=== PATIENT | male | born 1950 | race Caucasian/White ===

== ENCOUNTER 2024-07-09 15:39 | Inpatient (IN) | payer MEDICARE ==
[~2024-07-09] VITALS: Ht 167.6 cm; Wt 86.0 kg
[2024-07-09] MEDS ORDERED: CEFTRIAXONE 1 GM VIAL ONE (15:58)
[2024-07-09] MEDS ORDERED: SODIUM CHLORIDE 0.9% 1000ML 2,000 ML ONE (15:58)
[2024-07-09] MEDS ORDERED: ACETAMINOPHEN 1000 MG/100 ML 100 ML IV ONE (15:58)
[2024-07-09 16:12] LABS: BASOPHILS % 0.2 % (0.0-1.0); EOSINOPHILS # (AUTO) 0.1 (0.0-0.4); EOSINOPHILS % 0.6 % (0.0-6.0); HEMATOCRIT 43.5 % (38.2-49.6); LYMPHOCYTES # (AUTO) 0.7 (1.0-3.2); LYMPHOCYTES % 4.1 % (18.0-39.1); MEAN CORPUSCULAR HEMOGLOBIN 29.9 pg (28-32); MEAN CORPUSCULAR HGB CONC 32.2 g/dL (31-35); MEAN CORPUSCULAR VOLUME 92.8 fL (81-99); MONOCYTES # (AUTO) 1.6 (0.2-0.8); MONOCYTES % 8.8 % (4.4-11.3); NEUTROPHILS # (AUTO) 15.6 (2.1-6.9); NEUTROPHILS % 85.6 % (38.7-80.0); PLATELET COUNT 268 x10e3/uL (140-360); RED BLOOD COUNT 4.69 x10e6/uL (4.3-5.7); RED CELL DISTRIBUTION WIDTH 14.6 % (11.7-14.4); WHITE BLOOD COUNT 18.16 x10e3/uL (4.8-10.8)
[2024-07-09 16:14] LABS: CLARITY,URINE CLOUDY (CLEAR); COLOR,URINE YELLOW (YELLOW); LEUKOCYTE ESTERASE ,URINE SMALL (NEGATIVE); NITRITE,URINE POSITIVE (NEGATIVE); PH,URINE 5.5 (5 - 7); PROTEIN,URINE DIPSTICK >=300 (NEGATIVE)
[2024-07-09 16:15] LABS: BILIRUBIN,URINE NEGATIVE (NEGATIVE); GLUCOSE, URINE 500 (NEGATIVE); KETONES,URINE 1+ (NEGATIVE); URINE UROBILINOGEN 0.2 mg/dL (0.2 - 1)
[2024-07-09 16:17] LABS: BACTERIA,URINE MANY /HPF; EPITHELIAL CELLS,URINE RARE /LPF; INR 1.09; PROTHROMBIN TIME 14.7 seconds (11.9-14.5); WBC,URINE (MAN) >50 /HPF (0-5)
[2024-07-09 16:18] LABS: PARTIAL THROMBOPLASTIN TIME 30.1 seconds (23.8-35.5)
[2024-07-09 16:26] LABS: ALBUMIN 3.1 g/dL (3.5-5.0); ALBUMIN/GLOBULIN RATIO 0.6 (0.8-2.0); ANION GAP 17.3 mmol/L (8-16); CALCIUM 9.9 mg/dL (8.4-10.2); CREATININE, SERUM 1.69 mg/dL (0.72-1.25); POTASSIUM 4.3 mmol/L (3.5-5.1); TOTAL PROTEIN 8.2 g/dL (6.5-8.1)
[2024-07-09] MEDS ORDERED: IOPAMIDOL 370 MG/ML 100 ML INFUS..BTL INJ ONE (16:41)
[2024-07-09] MEDS: SODIUM CHLORIDE 0.9% 1000ML 1,000 ML IV ONE (17:06)
[2024-07-09] MEDS: ACETAMINOPHEN 1000 MG/100 ML IV STA (17:06)
[2024-07-09] MEDS: SODIUM CHLORIDE 0.9% 1000ML 1,000 ML IV SCH ×2 (17:07→19:37)
[2024-07-09] MEDS: SODIUM CHLORIDE 0.9% 500ML 500 ML IV ONE ×2 (17:58→19:47)
[2024-07-09] MEDS ORDERED: ONDANSETRON HCL INJ 2MG/ML 2ML 2 MG/ML VIAL IV PRN (18:45)
[2024-07-09] MEDS ORDERED: SODIUM CHLORIDE FLUSH 10 ML SYR INJ PRN (18:45)
[2024-07-09] MEDS: INSULIN REGULAR, HUMAN 100 UNIT/1 ML SQ ONE (19:38)
[2024-07-09 20:09] VITALS: TEMP 99.5
[2024-07-09] MEDS: IBUPROFEN 600 MG TAB PO PRN (20:13)
[2024-07-09] MEDS: Vancomycin IV 1 GM in SODIUM CHLORIDE 0.9% 250ML 250 ML IV SCH (20:17)
[2024-07-09] MEDS: ACETAMINOPHEN 325 MG TAB PO PRN (21:12)
[2024-07-09 22:00] VITALS: BP 127/77; PULSE 107; RESP 22; TEMP 100.5; O2SAT 96
[2024-07-09 22:05] VITALS: PULSE 109; RESP 18
[2024-07-09] MEDS ORDERED: METFORMIN HCL500 MG PO (23:00)
[2024-07-10] VITALS (7 sets, daily range): BP systolic 94–142; BP diastolic 75–90; PULSE 91–108; RESP 18–22; TEMP 97.8–100.3; O2SAT 93–99
[2024-07-10] MEDS ORDERED: DEXTROSE 50% SYRINGE 50 ML IV PRN (10:30)
[2024-07-10] MEDS: INSULIN REGULAR, HUMAN 100 UNIT/1 ML SQ SCH (11:30)
[2024-07-10] MEDS: MEROPENEM 1 GM in SODIUM CHLORIDE 0.9% 100 ML IV SCH (13:11)
[2024-07-10] MEDS ORDERED: POLYETHYLENE GLYCOL 3350 17 GM PACK PO PRN (14:15)
[2024-07-10] MEDS: PANTOPRAZOLE SOD 40 MG TABEC PO ONE (17:03)
[2024-07-10] MEDS: DOCUSATE SODIUM 100 MG CAP PO SCH (17:03)
[2024-07-11] VITALS (8 sets, daily range): BP systolic 121–164; BP diastolic 77–91; PULSE 75–93; RESP 17–20; TEMP 98.1–99.3; O2SAT 94–100
[2024-07-11 07:09] LABS: BASOPHILS % 0.1 % (0.0-1.0); EOSINOPHILS % 0.1 % (0.0-6.0); HEMATOCRIT 38.2 % (38.2-49.6); HEMOGLOBIN 11.9 g/dL (14.0-18.0); LYMPHOCYTES # (AUTO) 1.1 (1.0-3.2); LYMPHOCYTES % 8.2 % (18.0-39.1); MEAN CORPUSCULAR HEMOGLOBIN 29.6 pg (28-32); MEAN CORPUSCULAR HGB CONC 31.2 g/dL (31-35); MONOCYTES # (AUTO) 1.8 (0.2-0.8); MONOCYTES % 13.5 % (4.4-11.3); NEUTROPHILS # (AUTO) 10.4 (2.1-6.9); NEUTROPHILS % 77.1 % (38.7-80.0); PLATELET COUNT 177 x10e3/uL (140-360); RED BLOOD COUNT 4.02 x10e6/uL (4.3-5.7); RED CELL DISTRIBUTION WIDTH 15.2 % (11.7-14.4); WHITE BLOOD COUNT 13.48 x10e3/uL (4.8-10.8)
[2024-07-11 07:33] LABS: ANION GAP 10.9 mmol/L (8-16); CALCIUM 8.3 mg/dL (8.4-10.2); CHOL/HDL RATIO 4.2 (3.9-4.7); CREATININE, SERUM 1.14 mg/dL (0.72-1.25); MAGNESIUM 2.1 MG/DL (1.3-2.1); PHOSPHORUS 2.3 MG/DL (2.3-4.7); POTASSIUM 3.9 mmol/L (3.5-5.1)
[2024-07-11 08:00] LABS: FREE T4 (FREE THYROXINE) 0.85 ng/dL (0.8-1.8); THYROID STIMULATING HORMONE 1.065 uIU/mL (0.350-4.940)
[2024-07-11] MEDS: PANTOPRAZOLE SOD 40 MG TABEC PO SCH (09:06)
[2024-07-11] MEDS: LABETALOL HCL 5 MG/ML 20ML VIAL IV PRN (17:31)
[2024-07-12] VITALS (11 sets, daily range): BP systolic 145–167; BP diastolic 66–97; PULSE 74–90; RESP 18–23; TEMP 97.7–99.9; O2SAT 95–100
[2024-07-12 06:48] LABS: BASOPHILS % 0.1 % (0.0-1.0); HEMATOCRIT 37.8 % (38.2-49.6); LYMPHOCYTES # (AUTO) 0.8 (1.0-3.2); LYMPHOCYTES % 9.1 % (18.0-39.1); MEAN CORPUSCULAR HEMOGLOBIN 29.6 pg (28-32); MEAN CORPUSCULAR HGB CONC 31.7 g/dL (31-35); MEAN CORPUSCULAR VOLUME 93.1 fL (81-99); MONOCYTES # (AUTO) 1.2 (0.2-0.8); MONOCYTES % 12.7 % (4.4-11.3); NEUTROPHILS # (AUTO) 7.1 (2.1-6.9); NEUTROPHILS % 77.7 % (38.7-80.0); PLATELET COUNT 166 x10e3/uL (140-360); RED BLOOD COUNT 4.06 x10e6/uL (4.3-5.7); RED CELL DISTRIBUTION WIDTH 15.1 % (11.7-14.4); WHITE BLOOD COUNT 9.13 x10e3/uL (4.8-10.8)
[2024-07-12 07:14] LABS: ANION GAP 12.8 mmol/L (8-16); CALCIUM 8.6 mg/dL (8.4-10.2); CREATININE, SERUM 0.9 mg/dL (0.72-1.25); POTASSIUM 3.8 mmol/L (3.5-5.1)
[2024-07-12] MEDS ORDERED: LEVOCETIRIZINE D5 MG PO (15:57)
[2024-07-12] MEDS ORDERED: JARDIANCE10 MG PO (15:57)
[2024-07-12] MEDS ORDERED: GLIPIZIDE5 MG PO (15:57)
[2024-07-12] MEDS ORDERED: TRADJENTA5 MG PO (15:57)
[2024-07-12] MEDS ORDERED: LIPITOR20 MG PO (15:57)
[2024-07-12] MEDS ORDERED: LISINOPRIL2.5 MG PO (15:57)
[2024-07-12] MEDS: GLIPIZIDE 5 MG TAB PO SCH (18:08)
[2024-07-12] MEDS: METFORMIN HCL 500 MG TAB PO SCH (18:08)
[2024-07-12] MEDS: LISINOPRIL 2.5 MG TAB PO SCH (18:09)
[2024-07-12] MEDS ORDERED: ONDANSETRON ODT4 MG PO (18:28)
[2024-07-12] MEDS ORDERED: LEVOFLOXACIN500 MG PO (18:28)
[2024-07-12] MEDS ORDERED: ACETAMINOPHEN325 M1 PO (18:28)
[2024-07-12] MEDS ORDERED: ONDANSETRON HCL 4 MG ORAL DISINTEGRATING TAB PO PRN (19:30)
[2024-07-12] MEDS: ATORVASTATIN 40 MG TAB PO SCH (20:22)
[2024-07-13 00:44] VITALS: BP 140/84; PULSE 121; RESP 19; TEMP 98.2; O2SAT 98
[2024-07-13 04:00] VITALS: BP 135/82; PULSE 84; RESP 18; TEMP 98.1; O2SAT 96
[2024-07-13 06:37] VITALS: PULSE 82; RESP 20; O2SAT 94
[2024-07-13] MEDS: EMPAGLIFLOZIN 10 MG TABLET PO SCH (08:43)
[2024-07-13] MEDS: LORATADINE 10 MG TAB PO SCH (08:43)
[2024-07-13 09:28] VITALS: BP 134/82; PULSE 92; RESP 19; TEMP 97.7; O2SAT 98
== END 2024-07-13 11:24 | disposition home or self-care (01) | DRG 871 ==
LOC: ER 15:42 → ERHOLD 18:40 → MED/SURG3 21:50
PROVIDERS: ADMIT Internal Medicine; ATTEND Internal Medicine
DX: A41.51 Sepsis due to Escherichia coli [E. coli] (principal); G93.41 Metabolic encephalopathy; D68.9 Coagulation defect, unspecified; E87.1 Hypo-osmolality and hyponatremia; N12 Tubulo-interstitial nephritis, not specified as acute or chronic; Z16.24 Resistance to multiple antibiotics; N17.9 Acute kidney failure, unspecified; N30.91 Cystitis, unspecified with hematuria; R65.20 Severe sepsis without septic shock; E11.65 Type 2 diabetes mellitus with hyperglycemia; Z79.4 Long term (current) use of insulin; Z79.84 Long term (current) use of oral hypoglycemic drugs; R26.89 Other abnormalities of gait and mobility; J44.9 Chronic obstructive pulmonary disease, unspecified; Z87.891 Personal history of nicotine dependence; J32.9 Chronic sinusitis, unspecified; R05.9 Cough, unspecified; R09.3 Abnormal sputum; R00.0 Tachycardia, unspecified; I10 Essential (primary) hypertension; I71.40 Abdominal aortic aneurysm, without rupture, unspecified; K76.0 Fatty (change of) liver, not elsewhere classified; E66.9 Obesity, unspecified; Z68.30 Body mass index [BMI] 30.0-30.9, adult; Z11.52 Encounter for screening for COVID-19; Z79.899 Other long term (current) drug therapy
CPT/HCPCS: 0223U; 36415; 51700; 70450; 71045; 74177; 80048; 80053; 80061; 81001; 82948; 83036; 83605; 83735; 84100; 84439; 84443; 85025; 85610; 85730; 87040; 87086; 87186; 87400; 93005; 94799; 99285; J0692; J0696; J2185; J7030; J7040; J7050; Q9967